=== PATIENT | male | born 1990 | race Caucasian/White ===

== ENCOUNTER 2017-04-13 18:07 | Emergency (ER) | payer BC, OTHER ==
[~2017-04-13] VITALS: Ht 198.1 cm; Wt 101.7 kg
[2017-04-13 18:15] VITALS: TEMP 36.8; Ht 198.1 cm; Wt 101.7 kg
[2017-04-13] MEDS ORDERED: MULT1CHW38 PO (18:51)
[2017-04-13] MEDS ORDERED: OPTIRAY 320 IV PRN (19:00)
[2017-04-13 19:06] LABS: BASO % 0.3 %; BASO ABS # 0.02 K/uL (0-0.2); COMPLETE YES; EOS % 3.3 %; HEMATOCRIT 44.7 % (42-52); IG% 0.7 %; LYMPH % 29.6 %; LYMPH ABS # 2.06 K/uL (1.2-3.4); MEAN CORPUSCULAR HEMOGLOBIN 28.7 pg (25-34); MEAN CORPUSCULAR HGB CONC 32.2 g/dl (32-36); MEAN PLATELET VOLUME 9.9 fL (7.4-10.4); MONO % 8.6 %; NEUT % 57.5 %; PLATELET COUNT 242 K/uL (130-400); RED BLOOD COUNT 5.02 M/uL (4.7-6.1); WHITE BLOOD COUNT 6.95 K/uL (4.8-10.8)
[2017-04-13 19:18] LABS: PARTIAL THROMBOPLASTIN RATIO 1.1; PROTHROMBIN TIME (PATIENT) 10.7 SECONDS (9.0-12.0)
[2017-04-13 19:25] LABS: BUN/CREATININE RATIO 18.6 (10-20); CALCIUM 9.3 mg/dl (8.5-10.1); CREATININE 0.81 mg/dl (0.60-1.40); POTASSIUM 3.8 mmol/L (3.5-5.1)
[2017-04-13 19:28] LABS: ALB/GLOB RATIO 1.2 (0.9-2)
[2017-04-13 20:32] LABS: MANUAL MICROSCOPIC REQUIRED? NO; URINE APPEARANCE CLEAR (CLEAR); URINE BILIRUBIN NEG (NEG); URINE COLOR YELLOW; URINE NITRITE NEG (NEG); URINE PH 6.5 (4.5-7.5); URINE SPECIFIC GRAVITY <= 1.005 (1.000-1.030); UROBILINOGEN NEG (NEG)
[2017-04-13 20:33] LABS: REVIEW REQ? NO
[2017-04-13 20:39] LABS: ZZUR CULT IF INDIC CLEAN CATCH NO
--- NOTE | 2017-04-13 21:33 | DIAGNOSTIC IMAGING REPORT ---
CT SCAN OF THE ABDOMEN AND PELVIS WITH IV CONTRAST CLINICAL HISTORY: Epigastric abdominal pain. Hematochezia. COMPARISON STUDY: No priors. TECHNIQUE: Following the IV administration of 118 cc of Optiray 320, CT scan of the abdomen and pelvis is performed from the lung bases to the proximal femora. Images are reviewed in the axial, sagittal, and coronal planes. IV contrast was administered without complication. Automated dose control exposure was utilized. CT DOSE: 595.71 mGy.cm FINDINGS: Lung bases: The heart is normal in size and without pericardial effusion. The lung bases are clear. Liver: The contrast-enhanced liver is normal in size, contour, and attenuation. There is no intrahepatic biliary ductal dilatation. The hepatic veins and portal veins are patent. Gallbladder: Unremarkable. Spleen: The spleen is mildly enlarged measuring 14.6 cm in length. Pancreas: Unremarkable. Adrenal glands: Unremarkable. Kidneys: The contrast enhanced kidneys are normal in size and without hydronephrosis. The kidneys enhance symmetrically. Abdominal vasculature: The abdominal aorta is normal in course and caliber. Bowel: The small bowel and colon are normal in course and caliber. The appendix is not identified and reported surgically absent. Peritoneum: There is no intraperitoneal free air or abdominal ascites. There is a small fat-containing umbilical hernia. Lymphadenopathy: None. Pelvic viscera: There is nonspecific bladder wall thickening. The prostate and seminal vesicles are normal as visualized. Skeletal structures: No lytic or blastic lesions are seen. There is minimal lumbar scoliosis. IMPRESSION: 1. There is nonspecific bladder wall thickening. Correlate with clinical findings and urinalysis will be required. 2. No additional infectious or inflammatory findings are suggested in the abdomen or pelvis. 3. Mild splenomegaly. Electronically signed by: Derek Tenorio M.D. 04/13/2017 9:32 PM Dictated Date/Time: 04/13/2017 9:27 PM
[2017-04-13 22:00] VITALS: BP 122/79; PULSE 76; O2SAT 98
--- NOTE | 2017-04-13 22:34 | EMERGENCY ROOM VISIT NOTE ---
History First contact with patient: 18:24 Chief Complaint: RECTAL BLEEDING Stated Complaint: RECTAL BLEEDING,LOWER AND UPPER AB PAIN Nursing Triage Summary: Patient c/o red blood with BM for the last week. Also c/o upper and lower abdominal pain for the last week as well. Denies n/v/d, constipation. C/O throat pain and facial congestion x 3 days. History of Present Illness The patient is a 26 year old male who presents to the Emergency Room with complaints of rectal bleeding with bowel movements. The patient states that for the past one week, he has had a large amount of rectal bleeding with each bowel movement. He states it is not enough blood for laboratory lip will. He has also had abdominal discomfort. He states that he has some discomfort at baseline with intermittent sharp pains in his upper and lower abdomen. He reports it feels like a burning sensation. He rates the discomfort a 4/10. He denies any history of rectal bleeding. He denies any rectal pain. He has had a previous appendectomy. He denies any nausea or vomiting. He denies any lightheadedness, dizziness or syncope. He denies diarrhea. Review of Systems A complete 10 point review of systems was reviewed with the patient with pertinent positives and negatives as per history of present illness. All else were negative. Past Medical/Surgical History Medical Problems: (1) Appendectomy Social History Smoking Status: Never Smoker Alcohol Use: occasionally Marital Status: single Occupation Status: employed Current/Historical Medications Scheduled Multiple Vitamins W/ Minerals (Multivitamin Gummies Mens), 2 UNITS PO QAM Allergies Coded Allergies: No Known Allergies (Unverified , 04/13/17) Physical Exam Vital Signs Date Time Temp Pulse Resp B/P (MAP) Pulse Ox O2 Delivery O2 Flow Rate FiO2 04/13/17 22:00 76 16 122/79 98 Room Air 04/13/17 20:05 74 20 122/80 98 Room Air 04/13/17 18:15 36.8 76 17 128/83 99 Room Air Physical Exam VITALS: Vitals are noted on the nurse's note and reviewed by myself. Vital signs stable. GENERAL: This is a 26-year-old male, in no acute distress, nondiaphoretic, well- developed well-nourished. SKIN: Capillary reflex less than 2 seconds. HEENT: Normocephalic. PERRLA. EOMI. Nares patent. Mucous membranes moist. Neck is supple without nuchal rigidity. HEART: Regular rate and rhythm without murmurs gallops or rubs. LUNGS: Clear to auscultation bilaterally without wheezes, rales or rhonchi. ABDOMEN: Positive bowel sounds x 4. Soft, mild tenderness to palpation of the epigastric region and periumbilical region. RECTAL: There is a small external hemorrhoid noted. Brown heme-positive stool. NEURO: Patient was alert and oriented to person place and time. Medical Decision & Procedures ER Provider Diagnostic Interpretation: CT SCAN OF THE ABDOMEN AND PELVIS WITH IV CONTRAST FINDINGS: Lung bases: The heart is normal in size and without pericardial effusion. The lung bases are clear. Liver: The contrast-enhanced liver is normal in size, contour, and attenuation. There is no intrahepatic biliary ductal dilatation. The hepatic veins and portal veins are patent. Gallbladder: Unremarkable. Spleen: The spleen is mildly enlarged measuring 14.6 cm in length. Pancreas: Unremarkable. Adrenal glands: Unremarkable. Kidneys: The contrast enhanced kidneys are normal in size and without hydronephrosis. The kidneys enhance symmetrically. Abdominal vasculature: The abdominal aorta is normal in course and caliber. Bowel: The small bowel and colon are normal in course and caliber. The appendix is not identified and reported surgically absent. Peritoneum: There is no intraperitoneal free air or abdominal ascites. There is a small fat-containing umbilical hernia. Lymphadenopathy: None. Pelvic viscera: There is nonspecific bladder wall thickening. The prostate and seminal vesicles are normal as visualized. Skeletal structures: No lytic or blastic lesions are seen. There is minimal lumbar scoliosis. IMPRESSION: 1. There is nonspecific bladder wall thickening. Correlate with clinical findings and urinalysis will be required. 2. No additional infectious or inflammatory findings are suggested in the abdomen or pelvis. 3. Mild splenomegaly. Laboratory Results 04/13/17 18:55 Red Blood Count 5.02, Mean Corpuscular Volume 89.0, Mean Corpuscular Hemoglobin 28.7, Mean Corpuscular Hemoglobin Concent 32.2, Mean Platelet Volume 9.9, Neutrophils (%) (Auto) 57.5, Lymphocytes (%) (Auto) 29.6, Monocytes (%) (Auto) 8.6, Eosinophils (%) (Auto) 3.3, Basophils (%) (Auto) 0.3, Neutrophils # (Auto) 3.99, Lymphocytes # (Auto) 2.06, Monocytes # (Auto) 0.60, Eosinophils # (Auto) 0.23, Basophils # (Auto) 0.02 04/13/17 18:55 Test 04/13/17 18:55 04/13/17 19:35 White Blood Count 6.95 K/uL (4.8-10.8) Red Blood Count 5.02 M/uL (4.7-6.1) Hemoglobin 14.4 g/dL (14.0-18.0) Hematocrit 44.7 % (42-52) Mean Corpuscular Volume 89.0 fL (80-100) Mean Corpuscular Hemoglobin 28.7 pg (25-34) Mean Corpuscular Hemoglobin Concent 32.2 g/dl (32-36) Platelet Count 242 K/uL (130-400) Mean Platelet Volume 9.9 fL (7.4-10.4) Neutrophils (%) (Auto) 57.5 % Lymphocytes (%) (Auto) 29.6 % Monocytes (%) (Auto) 8.6 % Eosinophils (%) (Auto) 3.3 % Basophils (%) (Auto) 0.3 % Neutrophils # (Auto) 3.99 K/uL (1.4-6.5) Lymphocytes # (Auto) 2.06 K/uL (1.2-3.4) Monocytes # (Auto) 0.60 K/uL (0.11-0.59) Eosinophils # (Auto) 0.23 K/uL (0-0.5) Basophils # (Auto) 0.02 K/uL (0-0.2) RDW Standard Deviation 41.4 fL (36.4-46.3) RDW Coefficient of Variation 12.7 % (11.5-14.5) Immature Granulocyte % (Auto) 0.7 % Immature Granulocyte # (Auto) 0.05 K/uL (0.00-0.02) Prothrombin Time 10.7 SECONDS (9.0-12.0) Prothromb Time International Ratio 1.0 (0.9-1.1) Activated Partial Thromboplast Time 29.2 SECONDS (21.0-31.0) Partial Thromboplastin Ratio 1.1 Anion Gap 7.0 mmol/L (3-11) Est Creatinine Clear Calc Drug Dose 180.2 ml/min Estimated GFR () 143.2 Estimated GFR (Non- 123.5 BUN/Creatinine Ratio 18.6 (10-20) Calcium Level 9.3 mg/dl (8.5-10.1) Total Bilirubin 0.4 mg/dl (0.2-1) Aspartate Amino Transf (AST/SGOT) 103 U/L (15-37) Alanine Aminotransferase (ALT/SGPT) 112 U/L (12-78) Alkaline Phosphatase 62 U/L (45-117) Total Protein 8.3 gm/dl (6.4-8.2) Albumin 4.6 gm/dl (3.4-5.0) Globulin 3.7 gm/dl (2.5-4.0) Albumin/Globulin Ratio 1.2 (0.9-2) Lipase 134 U/L (73-393) Urine Color YELLOW Urine Appearance CLEAR (CLEAR) Urine pH 6.5 (4.5-7.5) Urine Specific [place] <= 1.005 (1.000-1.030) Urine Protein NEG (NEG) Urine Glucose (UA) NEG (NEG) Urine Ketones NEG (NEG) Urine Occult Blood NEG (NEG) Urine Nitrite NEG (NEG) Urine Bilirubin NEG (NEG) Urine Urobilinogen NEG (NEG) Urine Leukocyte Esterase NEG (NEG) ED Course The patient was evaluated as above. Labs were drawn and IV access was obtained. CT scan of the abdomen and pelvis was performed and read by radiology as above. Patient was reevaluated and findings were discussed. He is ready for discharge. Discharge instructions were reviewed with the patient. The patient verbalized understanding of my assessment and treatment plan and was discharged home in good condition. Medical Decision Differential diagnosis includes hemorrhoids, infectious colitis, irritable bowel syndrome, inflammatory bowel disease, among others. The patient is a 26-year-old male who presents today complaining of rectal bleeding and abdominal pain. The patient had some mild tenderness on examination. He did have heme-positive stool. There was a small hemorrhoid noted. Labs revealed no leukocytosis or anemia. LFTs are mildly elevated, possibly secondary to alcohol use. Urinalysis was not suggestive of infection. CT of the abdomen and pelvis was performed with both IV and oral contrast. This showed no acute findings within the abdomen. The exact cause of the patient's rectal bleeding is unclear. It may be due to his hemorrhoid. He was instructed to follow-up with his [employer] or gastroenterology for further workup. Based on the patient's presentation and work up, I feel the patient is stable for outpatient treatment. The patient was educated to return to the emergency department for any worsening of their current condition or new/concerning symptoms. He will follow up with his PCP and GI. Medication reconciliation: I attest that I have personally reviewed the patient 's current medication list. Blood pressure screening: Patient was found to have normal blood pressure on screening and does not require follow-up. Impression Primary Impression: Rectal bleeding Departure Information Dispostion Home / Self-Care Condition GOOD Referrals No Doctor, Assigned (PCP) Héctor Bolivar M.D. Patient Instructions My [facility] Additional Instructions Rest and drink plenty of fluids. For pain control, you can use the following [id number] medicines (if >12 yo): - Regular strength (325mg/tab) Tylenol (acetaminophen) 2 tabs every 4-6 hours as needed. Do not exceed 12 tablets in a 24 hour period. Avoid taking more than 4 grams (4000 mg) of Tylenol per day. This includes any other sources of acetaminophen you may take on a regular basis. - Regular strength (200 mg/tab) Advil (ibuprofen) 1-2 tabs every 4-6 hours as needed. Do not exceed a dose of 3200 mg per day. Follow-up with gastroenterology. Call them for appointment. Return to the emergency department with worsening bleeding, dizziness, lightheadedness or any other new/concerning symptoms.
== END 2017-04-13 22:53 | disposition home or self-care (01) ==
LOC: C.EDB 18:08
DX: K62.5 Hemorrhage of anus and rectum (principal); R10.9 Unspecified abdominal pain; Z98.890 Other specified postprocedural states